=== PATIENT | female | born 1995 ===

== ENCOUNTER 2022-02-14 14:15 | Inpatient (IN) | payer OTHER ==
[~2022-02-14] VITALS: Ht 170.2 cm; Wt 3.2 kg
[2022-02-20] MEDS ORDERED: PRENATAL CAPLE1 EAC1 PO (10:01)
[2022-02-21] MEDS ORDERED: FOLIC ACID1 MG (16:22)
[2022-02-21] MEDS ORDERED: ALLERGY RELIEF10 M1 (16:22)
[2022-02-23] MEDS ORDERED: KETO10TA2 PO (10:33)
[2022-02-23] MEDS ORDERED: OXYC1TAB9 PO (10:34)
== END 2022-02-23 14:14 | disposition home or self-care (01) | DRG 788 ==
LOC: LDR 02-20 07:49 → SURG-SUITE 02-20 07:49 → OB/GYN 02-25 14:15
PROVIDERS: ADMIT Obstetrics & Gynecology; ATTEND Obstetrics & Gynecology
PROC: 4A1HXCZ Monitoring of Products of Conception, Cardiac Rate, External Approach (ICD-10-PCS; 2022-02-20)
PROC: 10D00Z1 Extraction of Products of Conception, Low, Open Approach (ICD-10-PCS; principal; 2022-02-20 17:00)
DX: O62.0 Primary inadequate contractions (principal); Z3A.39 39 weeks gestation of pregnancy; Z37.0 Single live birth; Z20.822 Contact with and (suspected) exposure to COVID-19

== ENCOUNTER 2022-02-17 16:13 | Outpatient (CLI) | payer OTHER | END 2022-02-17 17:20 | disposition home or self-care (01) | LOC: NST 16:13 | PROVIDERS: ATTEND Obstetrics & Gynecology Maternal & Fetal Medicine | DX: Z34.83 Encounter for supervision of other normal pregnancy, third trimester (principal) ==